=== PATIENT | female | born 1985 | race Caucasian/White ===

== ENCOUNTER 2017-03-29 08:15 | Emergency (ER) | payer OTHER ==
--- NOTE | 2017-03-29 09:16 | ER Document Report ---
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 except for greg thyroiditis (2010- takes synthroid 112mcg per day-for 1 month) drove herself to hospital because of chest pain for 6 months. More frequent[facility] come [facility] for it. She came today because it was an "open" day today and was convenient for her, nothing else going on like classes ([employer] and [employer]). First noticed left sided to side or under the left breast and sometimes radiates to the right breast. sharp that lasts few seconds then gets dull for 20 minutes. Intermittent throughout day, more at night. Does not wake her up. 6 months ago it was once a week, now its daily. No aggrevating, no alleviating. Patient has to take Tums all the time that she is bad heartburn for 2 years. She does not take the Prilosec because she needs to take the Synthroid on an empty stomach. FMH: Grandfather triple bypass x 2, grandma hypothyroid, brother DM!. . Ovarian cyst removed 2009. LMP . TRAVEL OUTSIDE OF THE [place] IN LAST 30 DAYS: No - Related Data Allergies/Adverse Reactions: No Known Allergies Allergy (Verified 03/29/17 08:36) Past Medical History - General Information source: Patient - Social History Smoking Status: Never Smoker Frequency of alcohol use: Occasional Drug Abuse: None Lives with: Family - single mom Family History: Reviewed & Not Pertinent Patient has suicidal ideation: No Patient has homicidal ideation: No Endocrine Medical History: Reports: Hx Hypothyroidism Renal/ Medical History: Reports: Hx Ovarian Cysts. Denies: Hx Peritoneal Dialysis Psychiatric Medical History: Reports: Hx Anxiety, Hx Depression Past Surgical History: Reports: Hx Abdominal Surgery - umbilical hernia, Hx Gynecologic Surgery - ovarian cyst removal - Immunizations Hx Diphtheria, Pertussis, Tetanus Vaccination: Yes Review of Systems - Review of Systems Constitutional: No symptoms reported EENT: No symptoms reported Cardiovascular: See HPI Respiratory: No symptoms reported Gastrointestinal: See HPI Genitourinary: No symptoms reported Female Genitourinary: No symptoms reported Musculoskeletal: No symptoms reported Skin: No symptoms reported Hematologic/Lymphatic: No symptoms reported Neurological/Psychological: No symptoms reported Physical Exam - Vital signs Vitals: Temp Pulse Resp BP Pulse Ox 98.0 F 69 18 107/53 L 98 03/29/17 08:29 03/29/17 08:29 03/29/17 08:29 03/29/17 08:03/29/17 08:29 Interpretation: Normal - General General appearance: Appears well, Alert In distress: None - HEENT Head: Normocephalic, Atraumatic Eyes: Normal Conjunctiva: Normal Pupils: PERRL Pharynx: Normal Neck: Supple. No: Lymphadenopathy - Respiratory Respiratory status: No respiratory distress Chest status: Nontender Breath sounds: Normal Chest palpation: Normal - Cardiovascular Rhythm: Regular Heart sounds: Normal auscultation Murmur: No - Abdominal Inspection: Normal Distension: No distension Bowel sounds: Normal Tenderness: Tender - epigstrum which reproduces the pain that she is complaining of on the left side, then radiates to the right Organomegaly: No organomegaly. No: Hepatomegaly, Splenomegaly - Back Back: Normal, Nontender. No: CVA tenderness - Extremities General upper extremity: Normal inspection, Nontender, Normal color, Normal ROM , Normal temperature General lower extremity: Normal inspection, Nontender, Normal color, Normal ROM , Normal temperature, Normal weight bearing. No: Maira's sign - Neurological Neuro grossly intact: Yes Cognition: Normal Orientation: AAOx4 Kevin Coma Scale Eye Opening: Spontaneous Kevin Coma Scale Verbal: Oriented Kevin Coma Scale Motor: Obeys Commands Kevin Coma Scale Total: 15 Speech: Normal Motor strength normal: LUE, RUE, LLE, RLE Sensory: Normal - Psychological Associated symptoms: Normal affect, Normal mood - Skin Skin Temperature: Warm Skin Moisture: Dry Skin Color: Normal Skin irregularity: negative: Rash Course - Vital Signs Vital signs: Temp Pulse Resp BP Pulse Ox 98.0 F 69 18 102/73 99 03/29/17 08:29 03/29/17 08:29 03/29/17 11:01 03/29/17 11:01 03/29/17 11:01 - Laboratory Result Diagrams: 03/29/17 09:20 03/29/17 09:20 Laboratory results interpreted by me: 03/29/17 03/29/17 09:20 09:20 Monocytes % 13.7 H Glucose 57 L Total Bilirubin 1.8 H Alkaline Phosphatase 35 L Discharge - Discharge Clinical Impression: Epigastric abdominal pain, chest pain Condition: Good Disposition: ADMITTED INPATIENT Instructions: Abdominal Pain ([facility]), Chest Pain of Unclear Cause ([facility]), Prilosec (Acid Pump Inhibitor) ([facility]) Additional Instructions: to er if worse referral to [facility]heresis nurse [facility] take the [facility]ix daily Please complete the patient satisfaction survey if you get one, and return it.. If you do not receive a survey, then you can go to the [facility] website, [email or web address] and place your comments about your very good care. Thank you very much. It was a pleasure being your medical provider today. Prescriptions: Pantoprazole Sodium [Protonix] 40 mg PO DAILY #30 tablet.dr Referrals: ÁLVARO TATUM MD [ACTIVE STAFF] - Follow up as needed
--- NOTE | 2017-03-29 09:48 | EKG REPORT ---
SEVERITY:- NORMAL ECG - SINUS RHYTHM : Confirmed by: Leslie Raines 29-Mar-2017 09:47:18
[2017-03-29] MEDS ORDERED: LANSOPRAZOLE 30 MG TAB.RAP.DR PO ONE (09:51)
--- NOTE | 2017-03-29 09:51 | RADIOLOGY REPORT (SQ) ---
EXAM DESCRIPTION: CHEST SINGLE VIEW COMPLETED DATE/TIME: 03/29/2017 9:35 am REASON FOR STUDY: chest pain COMPARISON: None. EXAM PARAMETERS: NUMBER OF VIEWS: One view. TECHNIQUE: Single frontal radiographic view of the chest acquired. RADIATION DOSE: NA LIMITATIONS: None. FINDINGS: LUNGS AND PLEURA: No opacities, masses or pneumothorax. No pleural effusion. MEDIASTINUM AND HILAR STRUCTURES: No masses. Contour normal. HEART AND VASCULAR STRUCTURES: Heart normal in size. Normal vasculature. BONES: No acute findings. HARDWARE: EKG leads over the chest OTHER: No other significant finding. IMPRESSION: NO ACUTE RADIOGRAPHIC FINDING IN THE CHEST. TECHNICAL DOCUMENTATION: JOB ID: [id number]
[2017-03-29 09:53] LABS: ABSOLUTE BASOPHILS # (AUTO) 0.1 10^3/uL (0.0-0.2); ABSOLUTE EOSINOPHILS # (AUTO) 0.1 10^3/uL (0.0-0.6); ABSOLUTE LYMPHOCYTES (AUTO) 1.6 10^3/uL (0.5-4.7); ABSOLUTE MONOCYTES (AUTO) 0.6 10^3/uL (0.1-1.4); ABSOLUTE NEUT (AUTO) 2.3 10^3/uL (1.7-8.2); BASOPHILS % (AUTO) 1.4 % (0-2); EOSINOPHILS % (AUTO) 2.3 % (0-6); HEMATOCRIT 39.6 % (36.0-47.0); HEMOGLOBIN 13.6 g/dL (12.0-15.5); HGB HCT DIFFERENCE 1.2; LYMPHOCYTES % (AUTO) 33.6 % (13-45); MEAN CORPUSCULAR HGB CONC 34.3 g/dL (32.0-36.0); MEAN CORPUSCULAR VOLUME 93 fl (80-97); MONOCYTES % (AUTO) 13.7 % (3-13); RED BLOOD COUNT 4.24 10^6/uL (3.72-5.28); RED CELL DISTRIBUTION WIDTH 12.4 % (11.5-14.0); WHITE BLOOD COUNT 4.6 10^3/uL (4.0-10.5)
[2017-03-29 10:15] LABS: ALANINE AMINOTRANSFERASE 26 U/L (9-52); ALBUMIN 4.7 g/dL (3.5-5.0); ALKALINE PHOSPHATASE 35 U/L (38-126); ANION GAP 10 (5-19); ASPARTATE AMINO TRANSFERASE 26 U/L (14-36); BILIRUBIN,DIRECT 0.4 mg/dL (0.0-0.4); BILIRUBIN,TOTAL 1.8 mg/dL (0.2-1.3); BLOOD UREA NITROGEN 10 mg/dL (7-20); CARBON DIOXIDE 27 mmol/L (22-30); CHLORIDE 105 mmol/L (98-107); CREATINE KINASE 86 U/L (30-135); CREATININE RESULT 0.71 mg/dL (0.52-1.25); GLUCOSE 57 mg/dL (75-110); POTASSIUM 4.4 mmol/L (3.6-5.0); SODIUM 141.5 mmol/L (137-145); TOTAL PROTEIN 7.5 g/dL (6.3-8.2)
[2017-03-29 10:26] LABS: CREATINE KINASE MB 0.38 ng/mL (<4.55)
[2017-03-29 10:28] LABS: APPEARANCE,URINE CLEAR; BILIRUBIN,URINE NEGATIVE (NEGATIVE); GLUCOSE, URINE NEGATIVE (NEGATIVE); KETONES,URINE NEGATIVE (NEGATIVE); LEUKOCYTE ESTERASE,URINE NEGATIVE (NEGATIVE); NITRITE,URINE NEGATIVE (NEGATIVE); PROTEIN,URINE NEGATIVE (NEGATIVE); URINE SPECIFIC GRAVITY 1.003; UROBILINOGEN,URINE NEGATIVE mg/dL (<2.0)
[2017-03-29 10:30] LABS: URINE BARBITURATES SCREEN NEGATIVE; URINE METHADONE SCREEN NEGATIVE; URINE OPIATES LOW NEGATIVE; URINE PHENCYCLIDINE SCREEN NEGATIVE
[2017-03-29 10:36] LABS: TROPONIN I < 0.012 ng/mL
[2017-03-29 11:21] VITALS: BP 102/73
== END 2017-03-29 11:26 | disposition home or self-care (01) ==
LOC: ER 08:15
DX: R07.9 Chest pain, unspecified (principal); R10.13 Epigastric pain; E06.3 Autoimmune thyroiditis; Z79.899 Other long term (current) drug therapy
CPT/HCPCS: 36415; 71010; 80053; 80307; 81001; 82550; 82553; 83690; 84443; 84484; 84703; 85025; 93005; 93010; 99285

== ENCOUNTER 2017-11-18 15:37 | Emergency (ER) | payer OTHER ==
--- NOTE | 2017-11-18 17:12 | ER Document Report ---
ED Medical Screen (RME) - General Chief Complaint: Weakness Stated Complaint: DIZZY Time Seen by Provider: 11/18/17 17:03 Notes: RAPID MEDICAL EVALUATION DISCLOSURE I have seen this patient as part of a Rapid Medical Evaluation and, if applicable, placed any initially appropriate orders. The patient will be seen and fully evaluated, including a full history and physical exam, by a provider ( in Main ED or Fast Track) when a room becomes available. 32-year-old female PMH hypothyroidism here with complaints of feeling lightheaded that has been ongoing for quite some time but states that today is the worst episode she has ever had. While she was at work approximately 3 hours ago, she started to feel lightheaded as if she was about to faint however she did not have any syncope. During this time, she did not have any chest pain shortness of breath headache vision change nausea vomiting abdominal pain but did have one episode of diarrhea. EXAM CTAB RRR TRAVEL OUTSIDE OF THE [place] IN LAST 30 DAYS: No - Related Data Allergies/Adverse Reactions: No Known Allergies Allergy (Verified 11/18/17 17:03) Past Medical History - Social History Chew tobacco use (# tins/day): No Frequency of alcohol use: None Drug Abuse: None Endocrine Medical History: Reports: Hx Hypothyroidism Renal/ Medical History: Reports: Hx Ovarian Cysts. Denies: Hx Peritoneal Dialysis Psychiatric Medical History: Reports: Hx Anxiety, Hx Depression Past Surgical History: Reports: Hx Abdominal Surgery - umbilical hernia, Hx Gynecologic Surgery - ovarian cyst removal - Immunizations Hx Diphtheria, Pertussis, Tetanus Vaccination: Yes Physical Exam - Vital signs Vitals: Temp Pulse Resp BP Pulse Ox 98.9 F 67 15 103/57 L 100 11/18/17 15:53 11/18/17 15:53 11/18/17 15:53 11/18/17 15:53 11/18/17 15:53 Course - Vital Signs Vital signs: Temp Pulse Resp BP Pulse Ox 98.9 F 67 15 103/57 L 100 11/18/17 15:53 11/18/17 15:53 11/18/17 15:53 11/18/17 15:53 11/18/17 15:53
[2017-11-18 19:26] LABS: APPEARANCE,URINE CLEAR; BILIRUBIN,URINE NEGATIVE (NEGATIVE); COLOR,URINE COLORLESS; GLUCOSE, URINE NEGATIVE (NEGATIVE); KETONES,URINE NEGATIVE (NEGATIVE); LEUKOCYTE ESTERASE,URINE NEGATIVE (NEGATIVE); NITRITE,URINE NEGATIVE (NEGATIVE); PROTEIN,URINE NEGATIVE (NEGATIVE); URINE SPECIFIC GRAVITY 1.002; UROBILINOGEN,URINE NEGATIVE mg/dL (<2.0)
[2017-11-18 19:27] LABS: ABSOLUTE BASOPHILS # (AUTO) 0.1 10^3/uL (0.0-0.2); ABSOLUTE EOSINOPHILS # (AUTO) 0.1 10^3/uL (0.0-0.6); ABSOLUTE LYMPHOCYTES (AUTO) 1.3 10^3/uL (0.5-4.7); ABSOLUTE MONOCYTES (AUTO) 0.4 10^3/uL (0.1-1.4); ABSOLUTE NEUT (AUTO) 5.5 10^3/uL (1.7-8.2); BASOPHILS % (AUTO) 1.1 % (0-2); EOSINOPHILS % (AUTO) 0.7 % (0-6); HEMATOCRIT 42.9 % (36.0-47.0); HEMOGLOBIN 14.8 g/dL (12.0-15.5); LYMPHOCYTES % (AUTO) 18.1 % (13-45); MEAN CORPUSCULAR HEMOGLOBIN 32.2 pg (27.0-33.4); MEAN CORPUSCULAR HGB CONC 34.5 g/dL (32.0-36.0); MEAN CORPUSCULAR VOLUME 93 fl (80-97); MONOCYTES % (AUTO) 5.2 % (3-13); PLATELET COUNT 312 10^3/uL (150-450); RED BLOOD COUNT 4.59 10^6/uL (3.72-5.28); SEGMENTED NEUTROPHILS % (AUTO) 74.9 % (42-78); TOTAL CELLS COUNTED % (AUTO) 100 %; WHITE BLOOD COUNT 7.3 10^3/uL (4.0-10.5)
[2017-11-18 19:35] LABS: ALANINE AMINOTRANSFERASE 28 U/L (9-52); ALBUMIN 4.9 g/dL (3.5-5.0); ALKALINE PHOSPHATASE 45 U/L (38-126); ANION GAP 13 (5-19); ASPARTATE AMINO TRANSFERASE 22 U/L (14-36); BILIRUBIN,DIRECT 0.2 mg/dL (0.0-0.4); BILIRUBIN,TOTAL 1.1 mg/dL (0.2-1.3); BLOOD UREA NITROGEN 20 mg/dL (7-20); CALCIUM 10.3 mg/dL (8.4-10.2); CARBON DIOXIDE 30 mmol/L (22-30); CHLORIDE 102 mmol/L (98-107); GLUCOSE 69 mg/dL (75-110); POTASSIUM 4.2 mmol/L (3.6-5.0); SODIUM 144.8 mmol/L (137-145); TOTAL PROTEIN 7.9 g/dL (6.3-8.2)
[2017-11-18 19:36] LABS: PHOSPHORUS 4.1 mg/dL (2.5-4.5)
--- NOTE | 2017-11-18 20:39 | ER Document Report ---
ED General - General Chief Complaint: Weakness Stated Complaint: DIZZY Time Seen by Provider: 11/18/17 17:03 Notes: 32-year-old female PMH hypothyroidism here with complaints of feeling lightheaded that has been ongoing for quite some time but states that today is the worst episode she has ever had. While she was at work approximately 3 hours ago, she started to feel lightheaded as if she was about to faint however she did not have any syncope. During this time, she did not have any chest pain shortness of breath headache vision change nausea vomiting abdominal pain but did have one episode of diarrhea. TRAVEL OUTSIDE OF THE [place] IN LAST 30 DAYS: No - Related Data Allergies/Adverse Reactions: No Known Allergies Allergy (Verified 11/18/17 17:03) Past Medical History - Social History Smoking Status: Unknown if Ever Smoked Chew tobacco use (# tins/day): No Frequency of alcohol use: None Drug Abuse: None Family History: Reviewed & Not Pertinent Patient has suicidal ideation: No Patient has homicidal ideation: No Endocrine Medical History: Reports: Hx Hypothyroidism Renal/ Medical History: Reports: Hx Ovarian Cysts. Denies: Hx Peritoneal Dialysis Psychiatric Medical History: Reports: Hx Anxiety, Hx Depression Past Surgical History: Reports: Hx Abdominal Surgery - umbilical hernia, Hx Gynecologic Surgery - ovarian cyst removal - Immunizations Hx Diphtheria, Pertussis, Tetanus Vaccination: Yes Review of Systems - Review of Systems Notes: See history of present illness for pertinent positive review of systems; otherwise all review of systems have been reviewed and are negative Physical Exam - Vital signs Vitals: Temp Pulse Resp BP Pulse Ox 98.9 F 67 15 103/57 L 100 11/18/17 15:53 11/18/17 15:53 11/18/17 15:53 11/18/17 15:53 11/18/17 15:53 - Notes Notes: PHYSICAL EXAMINATION: GENERAL: Well-appearing and in no acute distress. HEAD: Atraumatic, normocephalic. EYES: Pupils equal round and reactive to light, extraocular movements intact, sclera anicteric, conjunctiva are normal. ENT: nares patent, oropharynx clear without exudates. Moist mucous membranes. NECK: Normal range of motion, supple without lymphadenopathy LUNGS: CTAB and equal. No wheezes rales or rhonchi. HEART: Regular rate and rhythm without murmurs ABDOMEN: Soft, no tenderness. No facial grimacing/wincing upon palpation. No guarding, no rebound. EXTREMITIES: Normal range of motion, no pitting edema. No cyanosis. NEUROLOGICAL: Cranial nerves grossly intact. Normal sensory/motor exams. PSYCH: Normal mood, normal affect. SKIN: Warm, Dry, normal turgor, no rashes or lesions noted Course - Re-evaluation Re-evalutation: 11/18/17 20:54 MEDICAL DECISION MAKING: Concern for electrolyte imbalance Orthostatic vitals unremarkable Results unremarkable with normal electrolytes aside from minimal hypoglycemia Patient given orange juice with great improvement in blood sugar (repeat 141) Instructed patient follow-up PCP next day or few Patient understands and agrees to the plan of care - Vital Signs Vital signs: Temp Pulse Resp BP Pulse Ox 98.9 F 67 15 103/57 L 100 11/18/17 15:53 11/18/17 15:53 11/18/17 15:53 11/18/17 15:53 11/18/17 15:53 - Laboratory Result Diagrams: 11/18/17 18:55 11/18/17 18:55 Laboratory results interpreted by me: 11/18/17 18:55 Glucose 69 L Calcium 10.3 H Discharge - Discharge Clinical Impression: Lightheadedness Condition: Good Disposition: HOME, SELF-CARE Additional Instructions: You were seen in the emergency department at [facility]. The blood sugar was slightly low but otherwise the other blood work was unremarkable. Please followup with your primary physician in the next few days for further management/evaluation. Please return to the emergency department for worsening of symptoms or any symptom that you deem to be concerning or life- threatening. Thank you for allowing us to be part of your care.
[2017-11-18 20:55] VITALS: BP 115/66
--- NOTE | 2017-11-19 07:38 | EKG REPORT ---
SEVERITY:- NORMAL ECG - SINUS RHYTHM : Confirmed by: Forrest Sarah MD 19-Nov-2017 07:37:11
== END 2017-11-18 21:44 | disposition home or self-care (01) ==
LOC: ER 15:37
DX: R42 Dizziness and giddiness (principal); E16.2 Hypoglycemia, unspecified; R19.7 Diarrhea, unspecified
CPT/HCPCS: 36415; 80053; 81001; 81025; 82962; 83735; 84100; 84443; 85025; 93005; 93010; 99285

== ENCOUNTER 2018-01-20 08:22 | Emergency (ER) | payer OTHER ==
--- NOTE | 2018-01-20 08:57 | ER Document Report ---
ED GI/ - General Chief Complaint: Abdominal Pain Stated Complaint: LOWER BACK/ABDOMINAL PAIN Time Seen by Provider: 01/20/18 08:56 Mode of Arrival: Ambulatory Information source: Patient TRAVEL OUTSIDE OF THE [place] IN LAST 30 DAYS: No - Related Data Allergies/Adverse Reactions: No Known Allergies Allergy (Verified 11/18/17 17:03) Past Medical History - Social History Family History: Reviewed & Not Pertinent Endocrine Medical History: Reports: Hx Hypothyroidism Renal/ Medical History: Reports: Hx Ovarian Cysts. Denies: Hx Peritoneal Dialysis Psychiatric Medical History: Reports: Hx Anxiety, Hx Depression Past Surgical History: Reports: Hx Abdominal Surgery - umbilical hernia, Hx Gynecologic Surgery - ovarian cyst removal - Immunizations Hx Diphtheria, Pertussis, Tetanus Vaccination: Yes Physical Exam - Vital signs Vitals: Temp Pulse Resp BP Pulse Ox 98.4 F 72 16 109/53 L 100 01/20/18 08:26 01/20/18 08:26 01/20/18 08:26 01/20/18 08:26 01/20/18 08:26 Course - Vital Signs Vital signs: Temp Pulse Resp BP Pulse Ox 98.4 F 72 16 109/53 L 100 01/20/18 08:26 01/20/18 08:26 01/20/18 08:26 01/20/18 08:26 01/20/18 08:26
--- NOTE | 2018-01-20 09:03 | ER Document Report ---
ED Medical Screen (RME) - General Chief Complaint: Abdominal Pain Stated Complaint: LOWER BACK/ABDOMINAL PAIN Time Seen by Provider: 01/20/18 08:56 Mode of Arrival: Ambulatory Information source: Patient Notes: 32-year-old female normally healthy [facility] has multiple symptoms that started a month ago. It includes pelvic pain more so on the right, upper abdominal pain, nausea, diarrhea, last night she had sharp pain that radiated between her shoulder blades on the right side. [facility] ago that her bilirubin was elevated and they told her to go back when she started vomiting. History of ovarian cyst that was removed. No vaginal discharge. No dysuria frequency or urgency. She has not felt well for a month. TRAVEL OUTSIDE OF THE [place] IN LAST 30 DAYS: No - Related Data Allergies/Adverse Reactions: No Known Allergies Allergy (Verified 11/18/17 17:03) Past Medical History Endocrine Medical History: Reports: Hx Hypothyroidism Renal/ Medical History: Reports: Hx Ovarian Cysts. Denies: Hx Peritoneal Dialysis Psychiatric Medical History: Reports: Hx Anxiety, Hx Depression Past Surgical History: Reports: Hx Abdominal Surgery - umbilical hernia, Hx Gynecologic Surgery - ovarian cyst removal - Immunizations Hx Diphtheria, Pertussis, Tetanus Vaccination: Yes Physical Exam - Vital signs Vitals: Temp Pulse Resp BP Pulse Ox 98.4 F 72 16 109/53 L 100 01/20/18 08:26 01/20/18 08:26 01/20/18 08:26 01/20/18 08:26 01/20/18 08:26 Course - Vital Signs Vital signs: Temp Pulse Resp BP Pulse Ox 98.4 F 72 16 109/53 L 100 01/20/18 08:26 01/20/18 08:26 01/20/18 08:26 01/20/18 08:26 01/20/18 08:26
[2018-01-20 09:37] LABS: ABSOLUTE BASOPHILS # (AUTO) 0.1 10^3/uL (0.0-0.2); ABSOLUTE EOSINOPHILS # (AUTO) 0.1 10^3/uL (0.0-0.6); ABSOLUTE LYMPHOCYTES (AUTO) 1.5 10^3/uL (0.5-4.7); ABSOLUTE MONOCYTES (AUTO) 0.6 10^3/uL (0.1-1.4); ABSOLUTE NEUT (AUTO) 3.3 10^3/uL (1.7-8.2); BASOPHILS % (AUTO) 1.1 % (0-2); HEMATOCRIT 40.8 % (36.0-47.0); LYMPHOCYTES % (AUTO) 27.3 % (13-45); MEAN CORPUSCULAR HEMOGLOBIN 32.5 pg (27.0-33.4); MEAN CORPUSCULAR HGB CONC 34.4 g/dL (32.0-36.0); MEAN CORPUSCULAR VOLUME 95 fl (80-97); MONOCYTES % (AUTO) 10.8 % (3-13); PLATELET COUNT 256 10^3/uL (150-450); RED BLOOD COUNT 4.32 10^6/uL (3.72-5.28); RED CELL DISTRIBUTION WIDTH 13.2 % (11.5-14.0); SEGMENTED NEUTROPHILS % (AUTO) 58.8 % (42-78); TOTAL CELLS COUNTED % (AUTO) 100 %; WHITE BLOOD COUNT 5.6 10^3/uL (4.0-10.5)
[2018-01-20 09:58] LABS: APPEARANCE,URINE SLIGHTLY-CLOUDY; BILIRUBIN,URINE NEGATIVE (NEGATIVE); COLOR,URINE YELLOW; GLUCOSE, URINE NEGATIVE (NEGATIVE); KETONES,URINE NEGATIVE (NEGATIVE); LEUKOCYTE ESTERASE,URINE NEGATIVE (NEGATIVE); NITRITE,URINE NEGATIVE (NEGATIVE); PROTEIN,URINE NEGATIVE (NEGATIVE); URINE SPECIFIC GRAVITY 1.008; UROBILINOGEN,URINE NEGATIVE mg/dL (<2.0)
[2018-01-20 10:03] LABS: ALANINE AMINOTRANSFERASE 27 U/L (9-52); ALBUMIN 4.5 g/dL (3.5-5.0); ALKALINE PHOSPHATASE 39 U/L (38-126); ANION GAP 11 (5-19); ASPARTATE AMINO TRANSFERASE 19 U/L (14-36); BILIRUBIN,DIRECT 0.1 mg/dL (0.0-0.4); BILIRUBIN,TOTAL 2.1 mg/dL (0.2-1.3); BLOOD UREA NITROGEN 13 mg/dL (7-20); CALCIUM 9.4 mg/dL (8.4-10.2); CARBON DIOXIDE 27 mmol/L (22-30); CHLORIDE 104 mmol/L (98-107); GLUCOSE 56 mg/dL (75-110); LIPASE 68.8 U/L (23-300); POTASSIUM 3.9 mmol/L (3.6-5.0); SODIUM 142.4 mmol/L (137-145); TOTAL PROTEIN 7.4 g/dL (6.3-8.2)
[2018-01-20 12:21] LABS: BACTERIA (WET MOUNT) 3+ BACTERIA SEEN; RBCS (WET MOUNT) RARE RBCS SEEN; T.VAGINALIS (WET MOUNT) NO TRICHOMONAS SEEN; WBCS (WET MOUNT) FEW WBCS SEEN; YEAST (WET MOUNT) BUDDING YEAST SEEN
--- NOTE | 2018-01-20 12:50 | RADIOLOGY REPORT (SQ) ---
EXAM DESCRIPTION: U/S ABDOMEN LIMITED W/O DOP COMPLETED DATE/TIME: 01/20/2018 12:41 pm REASON FOR STUDY: upper abd pain, diarrhea COMPARISON: None. TECHNIQUE: Dynamic and static grayscale images acquired of the abdomen and recorded on PACS. Additio nal selected color Doppler and spectral images recorded. LIMITATIONS: None. FINDINGS: PANCREAS: No masses. Visualized pancreatic duct normal caliber. LIVER: No masses. Echotexture normal. LIVER VASCULATURE: Normal directional flow of the main portal vein and hepatic veins. GALLBLADDER: Small amount of sludge. No stones. Normal wall thickness. No pericholecystic fluid. ULTRASOUND-DETECTED WASHINGTON'S SIGN: Negative. INTRAHEPATIC DUCTS AND COMMON DUCT: CBD and intrahepatic ducts normal caliber. No filling defects. INFERIOR VENA CAVA: Normal flow. AORTA: No aneurysm. RIGHT KIDNEY: Normal size. Normal echogenicity. No solid or suspicious masses. No hydronephrosis. No calcifications. PERITONEAL AND RIGHT PLEURAL SPACE: No ascites or effusions. OTHER: No other significant findings. IMPRESSION: No evidence of cholelithiasis or cholecystitis. TECHNICAL DOCUMENTATION: JOB ID: [id number] [employer]- All Rights Reserved Reading location - IP/workstation name: [email or web address]
--- NOTE | 2018-01-20 13:29 | ER Document Report ---
ED General - General Chief Complaint: Abdominal Pain Stated Complaint: LOWER BACK/ABDOMINAL PAIN Time Seen by Provider: 01/20/18 08:56 Mode of Arrival: Ambulatory Notes: Patient says that she has been experiencing lower back pain for the past month and a half. Also experiencing abdominal pains, in the lower area of her anterior abdomen for the past couple of days. Some pains between her shoulder blades on spine as well on the right side primarily. Has been noted some dizziness and headaches of late. She ate a couple of hours before experiencing the dizziness and headache, but describes eating oatmeal and a high carbohydrate meal to me. She is concerned her blood sugar may be low and in fact it is 56 here today. She ate food a couple of hours earlier. She suffers from anxiety and panic attacks and is receptive to the possibility that some of her symptoms may be from her anxiety and panic episodes. She has also had palpitations, heart racing. Is scheduled for a monitor to be put on for her on Saturday. Has a history of GERD and has been seen at [facility] for that condition. No history of any liver disorders. TRAVEL OUTSIDE OF THE [place] IN LAST 30 DAYS: No - Related Data Allergies/Adverse Reactions: No Known Allergies Allergy (Verified 01/20/18 09:01) Past Medical History - General Information source: Patient - Social History Smoking Status: Never Smoker Chew tobacco use (# tins/day): No Frequency of alcohol use: None Drug Abuse: None Family History: Reviewed & Not Pertinent Patient has suicidal ideation: No Patient has homicidal ideation: No Endocrine Medical History: Reports: Hx Hypothyroidism Renal/ Medical History: Reports: Hx Ovarian Cysts. Denies: Hx Peritoneal Dialysis Psychiatric Medical History: Reports: Hx Anxiety, Hx Depression Past Surgical History: Reports: Hx Abdominal Surgery - umbilical hernia, Hx Gynecologic Surgery - ovarian cyst removal - Immunizations Hx Diphtheria, Pertussis, Tetanus Vaccination: Yes Review of Systems - Review of Systems Notes: REVIEW OF SYSTEMS: CONSTITUTIONAL : Denies fever. EENT: Denies eye, ear, nose or mouth or throat pain or other symptoms. CARDIOVASCULAR: Denies chest pain. RESPIRATORY: Denies cough, chest congestion, or shortness of breath. GASTROINTESTINAL: See HPI.. GENITOURINARY: Denies difficulty or painful urinating, urinary frequency, blood in urine. MUSCULOSKELETAL: See HPI. SKIN: Denies rash or skin lesions. NEUROLOGICAL: Denies LOC or altered mental status. Denies headache. Denies sensory loss or motor deficits. Has had some dizziness and headaches, see HPI. ALL OTHER SYSTEMS REVIEWED AND NEGATIVE. Physical Exam - Vital signs Vitals: Temp Pulse Resp BP Pulse Ox 98.4 F 72 16 109/53 L 100 01/20/18 08:26 01/20/18 08:26 01/20/18 08:26 01/20/18 08:26 01/20/18 08:26 Interpretation: Normal - Notes Notes: PHYSICAL EXAMINATION: GENERAL: Well-appearing, in no acute distress. Vital signs are all normal. HEAD: Atraumatic, normocephalic. EYES: Pupils equal round and reactive to light, extraocular movements intact. ENT: oropharynx clear without exudates. Moist mucous membranes. NECK: Normal range of motion, supple. LUNGS: Breath sounds clear and equal bilaterally. HEART: Regular rate and rhythm without murmurs. ABDOMEN: Soft, nontender. No guarding or rebound. No masses. BACK: Little or no significant tenderness throughout entire back. EXTREMITIES: Normal range of motion without pain. NEUROLOGICAL: Normal speech, normal gait. Normal sensory, motor, and reflex exams. Awake, alert, and oriented x3. Cranial nerves normal. PSYCH: Normal mood, normal affect. SKIN: Warm, dry, no rashes. Course - Re-evaluation Re-evalutation: 01/21/18 21:10 Patient's pelvic swallowing showed budding yeast. She says she has Diflucan at home and I told her that she should not need but a single dose and repeated in a week if not effective. Patient's bilirubin is very minimally elevated at 2.1 but all the rest of her LFTs are normal. I ordered hepatitis screening tests and they all came back normal. I have advised the patient that it may be worth a visit to a survey data technician to evaluate her bilirubin, but I do not think it is clinically very significant. There is no indications of a recent infection such as a viral infection, no likelihood of any exposure to any toxins. Perhaps she may have some congenital metabolic error. - Vital Signs Vital signs: Temp Pulse Resp BP Pulse Ox 98.4 F 72 13 114/66 100 01/20/18 08:26 01/20/18 08:26 01/20/18 13:46 01/20/18 13:46 01/20/18 13:45 - Laboratory Result Diagrams: 01/20/18 09:05 01/20/18 09:05 Laboratory results interpreted by me: 01/20/18 09:05 Glucose 56 L Total Bilirubin 2.1 H - EKG Interpretation by Me EKG shows normal: Sinus rhythm Rate: Normal Rhythm: NSR Discharge - Discharge Clinical Impression: Back pain, Abdominal pain, Yeast infection of the vagina, Hypoglycemia, Serum total bilirubin elevated Condition: Stable Disposition: HOME, SELF-CARE Additional Instructions: LOW BACK PAIN: Three out of every four people will have an episode of disabling back pain during their lifetime. Most commonly the pain is due to straining of the muscles and ligaments in the low back. Usual treatment includes: (1) Rest on a firm surface. Avoid lying on your stomach. (2) Ice pack the painful area. After a few days, gentle heat may be used intermittently to relax the area, or ice packs can be continued. (3) Medication may be needed -- muscle relaxers and antiinflammatory medicines are commonly used. (4) As the back improves, exercises are prescribed to strengthen the back and abdominal muscles. Your doctor will advise you on the proper care for your back at each stage in your recovery. You may be better in a few days -- or healing may take several weeks. If new symptoms of a "herniated disc" (radiation of pain, numbness, or tingling down the back of the leg or weakness in the leg) occur, you should be re-examined. Further testing may be necessary. ABDOMINAL PAIN: There are many causes of abdominal pain. Pain can mean a serious problem requiring surgery (such as appendicitis). It can also be an innocent problem that goes away on its own (such as a viral infection). Often, time must pass to determine the cause of pain. The physician does not feel that hospitalization is necessary, at present. Things may change within the next 24 hours. Call the doctor or come back for re- examination if any problems occur, such as: (1) Pain that becomes more severe, steady, or becomes concentrated in one specific area. Also, pain that is more severe with movement or coughing. (2) Vomiting that persists or becomes more frequent. (3) Blood in the vomitus, urine, or bowel movements. Blood in the stool may have a tarry or black appearance. (4) Shaking chills or fever greater than 100 degrees F. (5) The abdomen becomes more distended or swollen. (6) Bowel movements cease. (7) Failure to improve as expected. Hypoglycemia You have suffered an episode of hypoglycemia (low blood sugar). Typical symptoms of hypoglycemia are shaking, sweating, headache, and confusion. When severe, unconsciousness or seizure may occur. Hypoglycemia occurs when a person taking insulin or diabetes pills has a change in the amount of blood sugar available -- due to exercise, decreased food intake, or alcohol. Should you feel symptoms of hypoglycemia again, immediately take some form of sugar such as sweetened juice. As the reaction subsides, eat a complex carbohydrate such as bread. If possible, check your blood sugar using a chemical strip. If episodes are occurring without obvious explanation, contact your physician for further evaluation. Liver Function Abnormality, elevated bilirubin. Your evaluation has shown an abnormality of your liver function. This may not be serious, but you need further testing. Abnormal liver function can be caused by alcohol, medicines, virus infections, heart failure, tumors, gallbladder problems, and many other diseases. But sometimes "abnormal" liver enzymes are "normal" -- it's just the way your liver works and there's nothing wrong. We need to be sure. If your doctor thinks the abnormal test was caused by alcohol, medicine, or a recent virus, we may just repeat the liver enzyme test later. Often, the test shows that the elevated enzymes are back to normal. Usually no treatment is necessary, except for avoiding the cause of the liver dysfunction (such as alcohol or a specific medicine). Further testing could include an ultrasound of the liver, liver scan, or perhaps a liver biopsy in difficult cases. Call the doctor if you become increasingly yellow, vomit repeatedly, begin to bruise or bleed easily, or have worsening abdominal pain. Vaginal Yeast Infection You have evidence of a yeast infection -- called "aylin." A vaginal yeast infection often causes itching and discharge. While not dangerous, it can be very unpleasant. A yeast infection often follows the use of powerful antibiotics. It is more likely to occur in diabetics. The treatment now is usually a single pill of Diflucan, but also an antifungal cream or suppository may be used for a few days. You do not need to avoid sexual intercourse. Recurrences are common. You can make a recurrence less likely by wearing cotton underwear and avoiding tight clothing. For mild recurrences, you can try [id number] creams or suppositories that are made specifically for yeast. If the symptoms do not resolve, you should follow up for re-examination. Sometimes treatment of the sexual partner is necessary if infections are recurrent. Anxiety The physician feels that some of your health problems are being caused by anxiety. Anxiety affects your health in many ways. Anxiety alone can cause palpitations, sweats, chest pains, abdominal pains, shortness of breath, and headaches. It contributes to ulcer disease, high blood pressure, irritable bowel syndrome, and has been shown to cause flare-ups of many other diseases. Anxiety is not a simple disorder to treat. If the anxiety is due to recent life stresses, you may simply need time to "work through" the changes. If the anxiety is due to an underlying unhappiness with yourself or due to psychiatric disturbance, professional help will be needed. Your physician can refer you for further help if needed. Anti-anxiety medication is occasionally given if the stress is acute or if you are having trouble sleeping. Chronic or frequent use of these medications is not a good idea because the body becomes reliant on it, preventing you from dealing with life's normal stresses. Take the Diflucan pills that you have at home. Adjust her eating habits for the low blood sugar. Follow-up at the [facility] for your very minimally elevated bilirubin level. FOLLOW-UP CARE: If you have been referred to a physician for follow-up care, call the physician s office for an appointment as you were instructed or within the next two days. If you experience worsening or a significant change in your symptoms, notify the physician immediately or return to the Emergency Department at any time for re-evaluation.
[2018-01-20 13:39] LABS: CHLAM PCR NOT DETECTED (NOT DETECT); GON PCR NOT DETECTED (NOT DETECT)
[2018-01-20 13:47] VITALS: BP 114/66
[2018-01-20 15:13] LABS: FREE T4 (FREE THYROXINE) 1.35 ng/dL (0.78-2.19)
[2018-01-20 15:26] LABS: THYROID STIMULATING HORMONE 1.65 uIU/mL (0.47-4.68)
--- NOTE | 2018-01-20 22:06 | EKG REPORT ---
SEVERITY:- NORMAL ECG - SINUS RHYTHM : Confirmed by: Mini Jurado MD 20-Jan-2018 22:05:33
[2018-01-21 08:43] LABS: HEPATITIS A AB IGM Negative (Negative); HEPATITIS B CORE AB IGM Negative (Negative); HEPATITS B SURFACE ANTIGEN Negative (Negative)
[2018-01-21 09:07] LABS: HEPATITIS C VIRUS ANTIBODY <0.1 s/co ratio (0.0-0.9)
== END 2018-01-20 14:02 | disposition home or self-care (01) ==
LOC: ER 08:22
DX: M54.5 Low back pain (principal); B37.3 Candidiasis of vulva and vagina; E16.2 Hypoglycemia, unspecified; R79.89 Other specified abnormal findings of blood chemistry; R10.30 Lower abdominal pain, unspecified; R42 Dizziness and giddiness; R51 Headache; M54.6 Pain in thoracic spine; F41.9 Anxiety disorder, unspecified; F41.0 Panic disorder [episodic paroxysmal anxiety]; R00.2 Palpitations
CPT/HCPCS: 36415; 76705; 80053; 80074; 81001; 83690; 84439; 84443; 84703; 85025; 87086; 87210; 87491; 87591; 93005; 93010; 99284

== ENCOUNTER 2018-06-13 07:19 | Day surgery (SDC) | payer OTHER ==
[2018-06-13] MEDS ORDERED: PROPOFOL INJ 200 MG/20 ML VIAL IV ONE (07:34)
[2018-06-13] MEDS ORDERED: MIDAZOLAM 2 MG/2 ML INJ ONE (08:30)
[2018-06-13] MEDS ORDERED: FAMOTIDINE INJ/PF 20 MG/2 ML SDV IV ONE (08:30)
[2018-06-13] MEDS ORDERED: ONDANSETRON HCL INJ/PF 4 MG/2 ML SDV IV PRN (09:46)
[2018-06-13] MEDS ORDERED: PROMETHAZINE HCL INJ 25 MG/1 ML VIAL IV PRN (09:46)
[2018-06-13] MEDS ORDERED: DIPHENHYDRAMINE HCL 50 MG/ML VIAL IV PRN (09:46)
[2018-06-13] MEDS ORDERED: MEPERIDINE HCL/PF INJ 25 MG/1 ML DISP.SYRIN IV PRN (09:46)
[2018-06-13] MEDS ORDERED: FENTANYL CITRATE INJ/PF 100 MCG/2 ML AMPUL IV PRN ×3 (09:46)
--- NOTE | 2018-06-13 10:20 | Operative Report ---
Operative Report DATE OF SURGERY: 06/13/18 Operative Report: The risks benefits and alternatives of the procedure explained to the patient in detail and informed consent is obtained.A GIF Olympus video scope was inserted into the patient's mouth and hypopharynx, the esophagus is identified intubated and insufflated, the scope was then advanced through the esophagus stomach and duodenum, retroflexion maneuver is done the esophagus stomach and first and second portions of the duodenum examined PREOPERATIVE DIAGNOSIS: Gastroesophageal reflux disease, epigastric pain POSTOPERATIVE DIAGNOSIS: Gastritis status post biopsy. Hiatal hernia. Duodenal biopsies obtained to rule out for celiac disease OPERATION: EGD with biopsy SURGEON: PATRICIO GUPTA ANESTHESIA: LMAC TISSUE REMOVED OR ALTERED: As noted above. COMPLICATIONS: None. ESTIMATED BLOOD LOSS: None. INTRAOPERATIVE FINDINGS: As noted above. PROCEDURE: Patient tolerated procedure well. No immediate postprocedure complications are noted. Patient discharged in good condition. Discharge date 06/13/2018. Discharge diet: Regular. Discharge activity: Regular. 2-3-week follow-up to discuss findings. Patient is instructed to call the office or proceed to the emergency room should there be any further problems or questions. Wait on the pathology.
[2018-06-13] MEDS ORDERED: ACETAMINOPHEN 325 MG TABLET PO PRN (10:35)
[2018-06-13] MEDS ORDERED: SIMETHICONE 80 MG TAB.CHEW PO PRN (10:36)
[2018-06-13] MEDS ORDERED: PROMETHAZINE HCL INJ 25 MG/1 ML VIAL INJ PRN (10:37)
[2018-06-13] MEDS ORDERED: DEXTROSE 5%-1/2 NORMAL SALINE 1,000 ML IV PRN (10:45)
[2018-06-13 11:01] VITALS: BP 108/58
== END 2018-06-13 11:03 | disposition home or self-care (01) ==
LOC: OROUT 07:19
PROVIDERS: ATTEND Internal Medicine Gastroenterology
DX: K44.9 Diaphragmatic hernia without obstruction or gangrene (principal); K29.50 Unspecified chronic gastritis without bleeding; K21.9 Gastro-esophageal reflux disease without esophagitis; E03.9 Hypothyroidism, unspecified; Z79.899 Other long term (current) drug therapy; E04.1 Nontoxic single thyroid nodule
CPT/HCPCS: 43239; 82962; 81025; 88342 ×2; 88305 ×2; J2250; J2704; S0028; 731